=== PATIENT | female | born 1975 | race Hispanic/Latino ===

== ENCOUNTER → 2017-08-12 | Outpatient (CLI) | payer BC ==
[~2017-08-12] MED LIST: IOPAMIDOL 370 MG/ML 200 ML INFUS..BTL INJ ONE; SODIUM CHLORIDE 0.9% 50ML 50 ML ONE
[2017-08-12 11:14] LABS: BLOOD UREA NITROGEN 22 mg/dL (7-26); BUN/CREATININE RATIO 31 (6-25); EST GLOMERULAR FILTRATION RATE > 60 ML/MIN (60-)
--- NOTE | 2017-08-13 12:00 | Diagnostic Imaging Report ---
Exam: Neck CTA History: Evaluate carotid stenosis. Comparison studies:None Technique: Axial images were obtained from the thoracic inlet. Coronal, sagittal and 3-D MIP reconstructed images were graded the axial source data. Intravenous contrast: 100 cc of Omnipaque 300. If present, stenosis is calculated utilizing the NASCET method which calculates the degree of stenosis with reference to the normal lumen of the carotid artery distal to the stenosis. Findings: Aortic arch and major vessels: Patent. No abnormalities. Common origin of the left common carotid artery right brachycephalic trunk. Right carotid artery: Patent, no stenosis in the right common carotid artery. Mild soft plaque at the right carotid bulb results in approximately 20% stenosis stenosis by NASCET criteria. Patent, no stenosis in the internal carotid artery beyond the carotid bulb. Left carotid artery: Patent, no stenosis in the left common carotid artery. Soft plaque at the left carotid bifurcation and proximal carotid bulb with moderate focal stenosis at the origin of the left external carotid artery. No hemodynamically significant stenosis in the left carotid bulb or in the left internal carotid artery (0% by NASCET criteria). Right vertebral artery: Patent. No abnormalities. Left vertebral artery: Patent. No abnormalities. No arterial abnormalities within the [place] and included intracranial circulation. Cervical spine: Mildly degenerated C5-C6 disc. Patent canal and foramina. Incidental findings: Normal-appearing thyroid gland is not visualized which may be due to previous ablation or thyroidectomy. IMPRESSION: 1. Approximate 20% stenosis due to soft plaque at the right cervical carotid bulb. 2. Mild atherosclerosis at the left carotid bifurcation and carotid bulb with moderate stenosis at the origin of the left ECA. No (0 %) stenosis at the left cervical carotid bulb by NASCET criteria. 3. No other cervical CTA abnormalities. Signed by: Dr. Bismark Baxter M.D. on 08/13/2017 11:57 AM
== END ==
LOC: CT 10:25
PROVIDERS: ATTEND Internal Medicine Interventional Cardiology
DX: I65.23 Occlusion and stenosis of bilateral carotid arteries (principal)
CPT/HCPCS: 36415; 70498; 81025; 82565; 84520; Q9967